=== PATIENT | male | born 1965 | race Hispanic/Latino ===

== ENCOUNTER 2018-04-06 08:42 | Observation (INO) | payer SELFPAY ==
[~2018-04-06] VITALS: Ht 170.2 cm; Wt 100.0 kg
[~2018-04-06 08:42] MED LIST: AMLODIPINE BESYL5 MG PO; AMLODIPINE5 MG PO; FLONASE SPRAY50 MC1; LISINOPRIL20 M1 PO; LORATADINE10 M1 PO; MECLIZINE HCL25 MG PO; METFORMIN500 MG PO
[2018-04-06] MEDS ORDERED: ASPIRIN ADULT L81 M2 PO (09:01)
[2018-04-06 09:21] LABS: IMMATURE GRANULOCYTES 0.2 % (0.0-5.0); MEAN CELL VOLUME 89.2 fL CALC (80.0-100.0); MEAN CORPUSCULAR HGB 30.4 pG CALC (26.0-32.0); MEAN CORPUSCULAR HGB CONC 34.1 g/L CALC (32.0-36.0); NEUT# 2.73 thou/uL (1.82-7.42); RED BLOOD COUNT 4.73 mill/uL (4.70-6.10); RED CELL DISTRI WIDTH 12.2 % (11.5-15.5)
[2018-04-06 09:28] LABS: HEMATOCRIT 42.2 % (39.0-50.0); HEMOGLOBIN 14.4 g/dl (14.0-18.0)
[2018-04-06 09:33] LABS: ANION GAP 16 (6-22 (CALC)); BILIRUBIN, TOTAL 0.6 mg/dL (0.0-1.4); BUN 16 mg/dL (9-20); BUN/CREATININE RATIO 23 (12-20 (CALC)); CARBON DIOXIDE 28 mmol/l (22-30); CHLORIDE 101 mmol/l (95-108); CREATININE 0.7 mg/dL (0.7-1.3); GFR > 60 ML/MIN (>=60 (CALC)); GFR FOR AFR.AMER. > 60 ML/MIN (>=60 (CALC)); LIPASE 50 u/l (23-300); POTASSIUM 4.5 mmol/l (3.5-5.1); SGOT/AST 31 u/l (17-59); SGPT/ALT 34 u/l (21-72); SODIUM 140 mmol/l (137-146)
[2018-04-06 09:35] LABS: ALBUMIN 4.3 g/dL (3.2-5.0); ALKALINE PHOSPHATASE 89 u/l (38-126)
[2018-04-06 09:38] LABS: D-DIMER 0.37 mg/L (0.19-0.60); INTERNATIONAL NORMALIZED RATIO 0.9 RATIO (0.7-1.3); PROTHROMBIN TIME 10.2 SECONDS (9.0-12.5)
[2018-04-06] MEDS ORDERED: ASPIRIN 8181 MG PO (10:47)
[2018-04-06 12:30] VITALS: BP 161/83
[2018-04-06 15:17] VITALS: BP 136/69
[2018-04-06 20:05] VITALS: BP 151/71
[2018-04-06 23:35] VITALS: BP 134/68
[2018-04-07 04:09] VITALS: BP 121/64
[2018-04-07 06:11] LABS: CHOLESTEROL HDL RATIO 4.6 (<4.4 (CALC))
[2018-04-07 07:49] VITALS: BP 150/78
[2018-04-07 11:12] VITALS: BP 167/80
[2018-04-07 15:55] VITALS: BP 151/77
[2018-04-07 20:42] VITALS: BP 109/68
[2018-04-08 00:40] VITALS: BP 121/62; BP 122/54
[2018-04-08 04:59] VITALS: BP 125/76
[2018-04-08 08:00] VITALS: BP 94/47
[2018-04-08 11:00] VITALS: BP 113/59
[2018-04-08] MEDS ORDERED: GLUCOPHAGE500 MG PO (13:08)
[2018-04-08] MEDS ORDERED: ASPIRIN 8181 MG PO (13:08)
[2018-04-08] MEDS ORDERED: ATORVASTATIN CA10 MG PO (13:08)
[2018-04-08] MEDS ORDERED: LISINOPRIL5 MG PO (13:08)
== END 2018-04-08 14:05 | disposition home or self-care (01) | DRG 313 ==
LOC: ED 08:42 → ED-I 10:00 → ED 10:48 → MS2 10:49
PROVIDERS: Emergency Medicine; ADMIT Internal Medicine; ATTEND Internal Medicine
PROC: 3E0234Z Introduction of Serum, Toxoid and Vaccine into Muscle, Percutaneous Approach (ICD-10-PCS; principal; 2018-04-07)
DX: R07.9 Chest pain, unspecified (principal); I16.0 Hypertensive urgency; I10 Essential (primary) hypertension; E11.65 Type 2 diabetes mellitus with hyperglycemia; E78.5 Hyperlipidemia, unspecified; R00.1 Bradycardia, unspecified; Z23 Encounter for immunization; Z91.14 Patient's other noncompliance with medication regimen; Z87.891 Personal history of nicotine dependence; Z68.34 Body mass index [BMI] 34.0-34.9, adult
CPT/HCPCS: G0378